=== PATIENT | male | born 1980 | race Caucasian/White ===

== ENCOUNTER 2025-01-27 06:43 | Day surgery (SDC) | payer OTHER ==
[2025-01-26 12:07] VITALS: BMI 28.3
[2025-01-27] MEDS ORDERED: Famotidine/PF 20 mg/2ml Vial ONE (07:10)
[2025-01-27] MEDS ORDERED: fentaNYL PF 100 MCG/2 ML SYRINGE ONE (07:12)
[2025-01-27] MEDS ORDERED: PROPOFOL 20 ML ONE (07:12)
[2025-01-27] MEDS ORDERED: Lidocaine 1% PF 5 ML VIAL ONE (07:13)
[2025-01-27] MEDS ORDERED: Glycopyrrolate 0.2 MG/ML 5 ML SYRINGE ONE (07:14)
[2025-01-27] MEDS ORDERED: PHENYLEPHRINE-NS 100 MCG/ML 10 ML SYRINGE ONE (08:33)
[2025-01-27] MEDS ORDERED: Ondansetron PF 4 MG/2 ML Vial ONE (08:36)
[2025-01-27] MEDS ORDERED: Ropivacaine 0.5% HCl/PF (150 MG/30 ML VIAL) ONE (08:51)
[2025-01-27] MEDS ORDERED: HYDROcodone/Acetaminophen 5/325 mg Tablet ONE (12:37)
== END 2025-01-27 13:09 | disposition home or self-care (01) ==
LOC: SDC 06:43
PROVIDERS: ATTEND Orthopaedic Surgery
PROC: 0LS30ZZ Reposition Right Upper Arm Tendon, Open Approach (ICD-10-PCS; principal; 2025-01-27)
PROC: 0PSC04Z Reposition Right Humeral Head with Internal Fixation Device, Open Approach (ICD-10-PCS; principal; 2025-01-27)
DX: S42.291A Other displaced fracture of upper end of right humerus, initial encounter for closed fracture (principal); S46.201A Unspecified injury of muscle, fascia and tendon of other parts of biceps, right arm, initial encounter; V85.5XXA Driver of special construction vehicle injured in nontraffic accident, initial encounter; Z87.891 Personal history of nicotine dependence; Z88.0 Allergy status to penicillin; Z88.6 Allergy status to analgesic agent; Z91.040 Latex allergy status; Z88.8 Allergy status to other drugs, medicaments and biological substances
CPT/HCPCS: C1713; J1100; J2250; J2371; J2704; J2795; J3490